=== PATIENT | female | born 1965 | race African-American/Black ===

== ENCOUNTER 2022-09-14 15:04 | Observation (INO) | payer OTHER ==
[2022-09-14 15:31] LABS: Absolute Lymphocytes (CBC) 1.9 K/uL (0.7-4.9); Hematocrit 33.1 % (36.0-45.0); MCV 85.8 fL (80-100); MPV 6.8 fL (7.6-11.3); RBC Red Blood Cell Count 3.85 M/uL (3.86-4.86)
[2022-09-14] MEDS ORDERED: FAMOTIDINE 20 MG/2 ML VIAL IV ONE (15:37)
[2022-09-14 16:00] LABS: Potassium 3.7 mmol/L (3.5-5.1); Troponin High Sensitivity 4.1 pg/mL (<58.9)
--- NOTE | 2022-09-14 16:13 | RAD REPORT ---
EXAM DESCRIPTION: Sarah Single View09/14/2022 3:49 pm CLINICAL HISTORY: CHEST PAIN COMPARISON: No comparisons TECHNIQUE: Portable AP view of the chest. FINDINGS: The lungs are clear.Mild central interstitial prominence could reflect mild congestion. No pneumothorax or effusion. The cardiomediastinal contours are unremarkable. IMPRESSION: No acute pulmonary process. Mild central interstitial prominence could reflect mild cent ral venous congestion.
[2022-09-14 16:23] LABS: SARS-CoV-2 Antigen Rapid Res Negative (Negative)
--- NOTE | 2022-09-14 17:25 | ER ---
Nurse's Notes [facility] Name: Sheryl Crawford Age: 57 yrs Sex: Female : 1965 Arrival Date: 09/14/2022 Time: 15:05 Bed 17 Private MD: Diagnosis: Chest pain, unspecified;Essential (primary) hypertension;Asymptomatic human immunodeficiency virus [HIV] infection status Presentation: 09/14 15:09 Chief complaint: EMS states: Pt c/o chest pain that radiates to R shoulder, worse w/ ph movement or deep breathing, states that the pain started this morning after eating a honey bun, denies N/V. Currently at [facility] for alcohol use, last drink was in July. Coronavirus screen: Vaccine status: Patient reports receiving the 2nd dose of the covid vaccine. Ebola Screen: No symptoms or risks identified at this time. Initial Sepsis Screen: Does the patient meet any 2 criteria? No. Patient's initial sepsis screen is negative. Does the patient have a suspected source of infection? No. Patient's initial sepsis screen is negative. Risk Assessment: Do you want to hurt yourself or someone else? Patient reports no desire to harm self or others. Onset of symptoms was September 14, 2022. 15:09 Method Of Arrival: EMS: [facility] 15:09 Acuity: HODA 3 ph Triage Assessment: 15:17 General: Appears in no apparent distress. comfortable, well groomed, Behavior is calm, ph cooperative, appropriate for age. Pain: Complains of pain in anterior aspect of right upper chest and mid-sternal area Pain radiates to right scapular area. Neuro: Level of Consciousness is awake, alert, obeys commands, Oriented to person, place, time, situation. Cardiovascular: Reports chest pain, Denies nausea, vomiting. Respiratory: Airway is patent Respiratory effort is even, unlabored. GI: No signs and/or symptoms were reported involving the gastrointestinal system. Derm: Skin is healthy with good turgor, Skin is pink, warm \T\ dry. Musculoskeletal: Circulation, motion, and sensation intact. Range of motion: intact in all extremities. Historical: - Allergies: 15:13 No Known Allergies; ph - Home Meds: 15:13 sertraline 50 mg oral tab 1 tab once daily [Active]; hydroxyzine HCl 50 mg Oral tab ph every 6 hours, PRN for anxiety [Active]; hydrochlorothiazide 12.5 mg Oral cap 1 cap once daily [Active]; Biktarvy 50-200-25 mg oral tab 1 tab once daily for HIV infection [Active]; fluticasone propionate 50 mcg/actuation nasal spsn 1 spray 2 times per day [Active]; - PMHx: 15:13 Bipolar disorder; depression; Hypertensive disorder; HIV positive; ph - Immunization history:: Adult Immunizations unknown. - Social history:: Smoking status: unknown. - Family history:: not pertinent. Screenin:18 [facility] ED Fall Risk Assessment (Adult) History of falling in the last 3 months, ph including since admission No falls in past 3 months (0 pts) Confusion or Disorientation No (0 pts) Intoxicated or Sedated No (0 pts) Impaired Gait No (0 pts) Mobility Assist Device Used No (0 pt) Altered Elimination No (0 pt) Score/Fall Risk Level 0 - 2 = Low Risk Oriented to surroundings, Maintained a safe environment, Hourly rounding (assess needs \T\ fall precautionary measures) done. Abuse screen: Denies threats or abuse. Denies injuries from another. Nutritional screening: No deficits noted. Tuberculosis screening: No symptoms or risk factors identified. Assessment: 15:25 General: Appears comfortable, Behavior is calm, cooperative, appropriate for age. Pain: sg5 Complains of pain in right upper chest Pain currently is 6 out of 10 on a pain scale. Pain began 1 day ago. Pain: Pain does not radiate. Quality of pain is described as aching. Neuro: No deficits noted. Level of Consciousness is awake, alert, obeys commands, Oriented to person, place, time, situation, Appropriate for age. Cardiovascular: Reports chest pain, Heart tones S1 S2 present Capillary refill < 3 seconds Rhythm is regular. Respiratory: Airway is patent. GI: No deficits noted. No signs and/or symptoms were reported involving the gastrointestinal system. : No deficits noted. No signs and/or symptoms were reported regarding the genitourinary system. EENT: No deficits noted. No signs and/or symptoms were reported regarding the EENT system. Derm: No deficits noted. No signs and/or symptoms reported regarding the dermatologic system. Musculoskeletal: No deficits noted. No signs and/or symptoms reported regarding the musculoskeletal system. 16:03 Reassessment: Patient appears in no apparent distress at this time. Patient and/or ph family updated on plan of care and expected duration. Pain level reassessed. Patient is alert, oriented x 3, equal unlabored respirations, skin warm/dry/pink. 16:39 Reassessment: Patient appears in no apparent distress at this time. Patient and/or ph family updated on plan of care and expected duration. Pain level reassessed. Patient is alert, oriented x 3, equal unlabored respirations, skin warm/dry/pink. 17:30 Reassessment: Patient appears in no apparent distress at this time. Patient and/or ph family updated on plan of care and expected duration. Pain level reassessed. Patient is alert, oriented x 3, equal unlabored respirations, skin warm/dry/pink. 18:30 Reassessment: Patient appears in no apparent distress at this time. Patient and/or ph family updated on plan of care and expected duration. Pain level reassessed. Patient is alert, oriented x 3, equal unlabored respirations, skin warm/dry/pink. 19:20 Reassessment: Patient appears in no apparent distress at this time. Patient and/or ph family updated on plan of care and expected duration. Pain level reassessed. Patient is alert, oriented x 3, equal unlabored respirations, skin warm/dry/pink. 21:00 Reassessment: Patient appears in no apparent distress at this time. Patient and/or aa9 family updated on plan of care and expected duration. Pain level reassessed. Patient is alert, oriented x 3, equal unlabored respirations, skin warm/dry/pink. Patient denies pain at this time. 22:00 Reassessment: Patient appears in no apparent distress at this time. Patient and/or aa9 family updated on plan of care and expected duration. Pain level reassessed. Patient is alert, oriented x 3, equal unlabored respirations, skin warm/dry/pink. Patient denies pain at this time. 09/15 00:16 Reassessment: Patient appears in no apparent distress at this time. Patient and/or aa9 family updated on plan of care and expected duration. Pain level reassessed. Patient is alert, oriented x 3, equal unlabored respirations, skin warm/dry/pink. 00:19 Reassessment: report provided to BRITTANY Snell. aa9 Vital Signs: 09/14 15:09 BP 152 / 100; Pulse 77; Resp 20; Temp 97.8; Pulse Ox 100% on R/A; Weight 62.14 kg; ph Height 5 ft. 7 in. (170.18 cm); 15:29 BP 142 / 99; Pulse 70; Resp 16; Temp 97.9; Pulse Ox 100% on R/A; Pain 6/10; sg5 16:03 BP 142 / 99; Pulse 65; Resp 18; Pulse Ox 98% on R/A; ph 16:39 BP 144 / 89; Pulse 67; Resp 18; Pulse Ox 98% on R/A; ph 17:30 BP 149 / 89; Pulse 68; Resp 18; Pulse Ox 98% on R/A; ph 20:30 BP 147 / 97; Pulse 71; Resp 18 S; Pulse Ox 98% on R/A; aa9 15:09 Body Mass Index 21.46 (62.14 kg, 170.18 cm) ph ED Course: 15:05 Patient arrived in ED. ld1 15:08 Francisco Javier Dyer MD is Attending Physician. johan 15:09 Lilian Roberts RN is Primary Nurse. ph 15:13 Triage completed. ph 15:18 Arm band placed on Patient placed in an exam room, on a stretcher. ph 15:18 Patient has correct armband on for positive identification. Placed in gown. Bed in low ph position. Call light in reach. Side rails up X2. Client placed on continuous cardiac and pulse oximetry monitoring. NIBP monitoring applied. Door closed. Noise minimized. Warm blanket given. Pillow given. 15:19 Maintain EMS IV. Dressing intact. Good blood return noted. Site clean \T\ dry. Gauge \T\ ph site: 20 RAC. Patient maintains SpO2 saturation greater than 95% on room air. 17:23 Shady Taveras is Hospitalizing Provider. johan 21:49 UDS Sent. aa9 09/15 00:10 No provider procedures requiring assistance completed. Patient admitted, IV remains in aa9 place. 00:19 Test Urine - POC Sent. aa9 Administered Medications: 09/14 15:23 Not Given (324 given by EMS): Aspirin 81 mg PO once ph 16:03 Drug: Pepcid (famotidine) 20 mg Route: IVP; Site: right antecubital; ph 17:07 Follow up: Response: No adverse reaction ph 19:03 Drug: Lovenox (enoxaparin) 60 mg Route: Sub-Q; Site: right lower abdomen; ph 19:21 Follow up: Response: No adverse reaction ph 19:04 Drug: NS 0.9% 500 ml Route: IV; Rate: bolus; Site: right antecubital; ph 09/15 00:19 Follow up: Response: No adverse reaction; IV Status: Completed infusion; IV Intake: aa9 500ml 09/14 19:04 Drug: NS 0.9% 1000 ml Route: IV; Rate: 125 ml/hr; Site: right antecubital; ph 19:21 Follow up: IV Status: Infusion continued upon admission ph 09/15 00:20 Follow up: Response: No adverse reaction; IV Status: Infusion continued upon admission; aa9 IV Intake: 900ml Medication: 09/14 15:18 VIS not applicable for this client. ph Intake: 09/15 00:19 IV: 500ml; Total: 500ml. aa9 00:20 IV: 900ml; Total: 1400ml. aa9 Outcome: 09/14 17:24 Decision to Hospitalize by Provider. [facility] 09/15 00:11 Admitted to Med/surg accompanied by tech, room 220, with chart. aa9 Condition: stable Instructed on the need for admit. 00:31 Patient left the ED. aa9 Signatures: Francisco Javier Dyer MD MD cha Hall, Patricia, RN RN ph Julieth Allen RN RN ld1 Sowmya De Oliveira RN RN aa9 Mona Peña RN RN sg5
--- NOTE | 2022-09-14 17:25 | EDPHYS ---
Physician Documentation [facility] Name: Sheryl Crawford Age: 57 yrs Sex: Female : 1965 Arrival Date: 09/14/2022 Time: 15:05 Bed 17 Private MD: ED Physician Francisco Javier Dyer HPI: 09/14 17:18 This 57 yrs old Black Female presents to ER via EMS with complaints of Chest Pain. johan 17:18 The patient or guardian reports chest pain that is located primarily in the anterior johan chest wall, bilaterally. Onset: just prior to arrival. The pain radiates to back. Associated signs and symptoms: Pertinent positives: dizziness, lightheadedness, shortness of breath. The chest pain is described as a heaviness, a pressure. Duration: The patient or guardian reports multiple episodes, with no pattern. Modifying factors: The symptoms are alleviated by nothing. the symptoms are aggravated by nothing. The patient has not experienced similar symptoms in the past. Historical: - Allergies: 15:13 No Known Allergies; ph - Home Meds: 15:13 sertraline 50 mg oral tab 1 tab once daily [Active]; hydroxyzine HCl 50 mg Oral tab ph every 6 hours, PRN for anxiety [Active]; hydrochlorothiazide 12.5 mg Oral cap 1 cap once daily [Active]; Biktarvy 50-200-25 mg oral tab 1 tab once daily for HIV infection [Active]; fluticasone propionate 50 mcg/actuation nasal spsn 1 spray 2 times per day [Active]; - PMHx: 15:13 Bipolar disorder; depression; Hypertensive disorder; HIV positive; ph - Immunization history:: Adult Immunizations unknown. - Social history:: Smoking status: unknown. - Family history:: not pertinent. ROS: 17:18 Constitutional: Negative for fever, chills, and weight loss, Eyes: Negative for injury, johan pain, redness, and discharge, ENT: Negative for injury, pain, and discharge, Neck: Negative for injury, pain, and swelling, Respiratory: Negative for shortness of breath, cough, wheezing, and pleuritic chest pain, Abdomen/GI: Negative for abdominal pain, nausea, vomiting, diarrhea, and constipation, Back: Negative for injury and pain, : Negative for injury, bleeding, discharge, and swelling, MS/Extremity: Negative for injury and deformity, Skin: Negative for injury, rash, and discoloration, Neuro: Negative for headache, weakness, numbness, tingling, and seizure, Psych: Negative for depression, anxiety, suicide ideation, homicidal ideation, and hallucinations, Allergy/Immunology: Negative for hives, rash, and allergies, Endocrine: Negative for neck swelling, polydipsia, polyuria, polyphagia, and marked weight changes, Hematologic/Lymphatic: Negative for swollen nodes, abnormal bleeding, and unusual bruising. 17:18 Cardiovascular: Positive for chest pain, of the chest. Exam: 17:18 Constitutional: This is a well developed, well nourished patient who is awake, alert, johan and in no acute distress. Head/Face: Normocephalic, atraumatic. Eyes: Pupils equal round and reactive to light, extra-ocular motions intact. Lids and lashes normal. Conjunctiva and sclera are non-icteric and not injected. Cornea within normal limits. Periorbital areas with no swelling, redness, or edema. ENT: Nares patent. No nasal discharge, no septal abnormalities noted. Tympanic membranes are normal and external auditory canals are clear. Oropharynx with no redness, swelling, or masses, exudates, or evidence of obstruction, uvula midline. Mucous membranes moist. Neck: Trachea midline, no thyromegaly or masses palpated, and no cervical lymphadenopathy. Supple, full range of motion without nuchal rigidity, or vertebral point tenderness. No Meningismus. Chest/axilla: Normal chest wall appearance and motion. Nontender with no deformity. No lesions are appreciated. Cardiovascular: Regular rate and rhythm with a normal S1 and S2. No gallops, murmurs, or rubs. Normal PMI, no JVD. No pulse deficits. Respiratory: Lungs have equal breath sounds bilaterally, clear to auscultation and percussion. No rales, rhonchi or wheezes noted. No increased work of breathing, no retractions or nasal flaring. Abdomen/GI: Soft, non-tender, with normal bowel sounds. No distension or tympany. No guarding or rebound. No evidence of tenderness throughout. Back: No spinal tenderness. No costovertebral tenderness. Full range of motion. Skin: Warm, dry with normal turgor. Normal color with no rashes, no lesions, and no evidence of cellulitis. MS/ Extremity: Pulses equal, no cyanosis. Neurovascular intact. Full, normal range of motion. Neuro: Awake and alert, GCS 15, oriented to person, place, time, and situation. Cranial nerves II-XII grossly intact. Motor strength 5/5 in all extremities. Sensory grossly intact. Cerebellar exam normal. Normal gait. Psych: Awake, alert, with orientation to person, place and time. Behavior, mood, and affect are within normal limits. 17:18 ECG was reviewed by the Attending Physician. Vital Signs: 15:09 BP 152 / 100; Pulse 77; Resp 20; Temp 97.8; Pulse Ox 100% on R/A; Weight 62.14 kg; ph Height 5 ft. 7 in. (170.18 cm); 15:29 BP 142 / 99; Pulse 70; Resp 16; Temp 97.9; Pulse Ox 100% on R/A; Pain 6/10; sg5 16:03 BP 142 / 99; Pulse 65; Resp 18; Pulse Ox 98% on R/A; ph 16:39 BP 144 / 89; Pulse 67; Resp 18; Pulse Ox 98% on R/A; ph 17:30 BP 149 / 89; Pulse 68; Resp 18; Pulse Ox 98% on R/A; ph 20:30 BP 147 / 97; Pulse 71; Resp 18 S; Pulse Ox 98% on R/A; aa9 15:09 Body Mass Index 21.46 (62.14 kg, 170.18 cm) ph MDM: 15:08 Patient medically screened. johan 17:20 Differential diagnosis: abnormal EKG, acute myocardial infarction, acute pericarditis, johan anxiety, costochondritis, esophagitis, gastritis, herpes zoster, pancreatitis, peptic ulcer disease, pleurisy, pneumonia, pneumothorax, pulmonary embolus, stable angina, thoracic aortic disection, unstable angina. HEART Score: History: Slightly Suspicious (0), ECG: Normal (0), Age: > 45 and < 65 years (1), Risk Factors: > or = 3 Risk factors for atherosclerotic disease (2), [Hypertension] [Active Smoker] [+ Family HX] Troponin: < or = 1 x Normal Limit (0). The patient was given aspirin in the Emergency Department. LUZ Risk Score: 1 - Three or more CAD risk factors, TOTAL SCORE = 1. Data reviewed: vital signs, nurses notes, lab test result(s), EKG, radiologic studies, CT scan, plain films. Consideration of Admission/Observation Patient was admitted/placed on observation. I considered the following discharge prescriptions or medication management in the emergency department Medications were administered in the Emergency Department. See MAR. Test considered but Not performed: Ultrasound no echo. Care significantly affected by the following Social Determinants of Health: Poor access to transportation, Inadequate housing, Misuse of alcohol and/or drugs, Problems related to primary support group, Unemployment, Problems related to employment. 09/14 15:05 Order name: Basic Metabolic Panel [facility] 09/14 15:05 Order name: CBC with Diff [facility] 09/14 15:05 Order name: Troponin HS [facility] 09/14 15:11 Order name: Lipase [facility] 09/14 15:11 Order name: SARS RAPID [facility] 09/14 15:34 Order name: CBC with Automated Diff; Complete Time: 17:16 [facility] 09/14 15:44 Order name: Lipase; Complete Time: 17:16 [facility] 09/14 16:00 Order name: Basic Metabolic Panel; Complete Time: 17:16 [facility] 09/14 16:00 Order name: Troponin High Sensitivity; Complete Time: 17:16 [facility] 09/14 16:23 Order name: SARS-COV-2 Antigen Rapid; Complete Time: 17:16 [facility] 09/14 17:18 Order name: UDS [facility] 09/14 22:01 Order name: Urine Dipstick-Ancillary [facility] 09/14 22:08 Order name: Test Urine - POC 09/14 22:24 Order name: Urine Drug Screen [facility] 09/14 15:05 Order name: XRAY Chest (1 view) [facility] 09/14 15:05 Order name: EKG; Complete Time: 15:06 [facility] 09/14 15:05 Order name: Cardiac monitoring; Complete Time: 15:19 [facility] 09/14 15:05 Order name: EKG - Nurse/Tech; Complete Time: 15:19 [facility] 09/14 15:05 Order name: IV Saline Lock; Complete Time: 15:19 [facility] 09/14 16:14 Order name: RAD; Complete Time: 17:16 [facility] 09/14 17:17 Order name: CT Aorta for Dissection [facility] 09/14 17:17 Order name: US Abdomen Limited [facility] 09/14 17:54 Order name: US; Complete Time: 18:12 [facility] 09/14 18:11 Order name: CT; Complete Time: 18:12 [facility] 09/14 22:37 Order name: Urine --Ancillary [facility] 09/14 15:05 Order name: Labs collected and sent; Complete Time: 15:19 [facility] 09/14 15:05 Order name: O2 Per Protocol; Complete Time: 15:19 [facility] 09/14 15:05 Order name: O2 Sat Monitoring; Complete Time: 15: [facility] 09/14 15:11 Order name: Urine Dipstick-Ancillary (obtain specimen); Complete Time: 21:49 johan EC:18 Rate is 62 beats/min. Rhythm is regular. QRS [place] is Normal. [place] interval is normal. QRS johan interval is normal. QT interval is normal. No Q waves. T waves are Normal. No ST changes noted. Clinical impression: NSR w/ Non-specific ST/T Changes and No evidence of ischemia. Interpreted by me. Reviewed by me. Administered Medications: 15: Not Given (324 given by EMS): Aspirin 81 mg PO once ph 16:03 Drug: Pepcid (famotidine) 20 mg Route: IVP; Site: right antecubital; ph 17:07 Follow up: Response: No adverse reaction ph 19:03 Drug: Lovenox (enoxaparin) 60 mg Route: Sub-Q; Site: right lower abdomen; ph 19:21 Follow up: Response: No adverse reaction ph 19:04 Drug: NS 0.9% 500 ml Route: IV; Rate: bolus; Site: right antecubital; ph 09/15 00:19 Follow up: Response: No adverse reaction; IV Status: Completed infusion; IV Intake: aa9 500ml 09/14 19:04 Drug: NS 0.9% 1000 ml Route: IV; Rate: 125 ml/hr; Site: right antecubital; ph 19:21 Follow up: IV Status: Infusion continued upon admission ph 09/15 00:20 Follow up: Response: No adverse reaction; IV Status: Infusion continued upon admission; aa9 IV Intake: 900ml Disposition Summary: 09/14/22 17:24 Hospitalization Ordered Hospitalization Status: Observation johan Provider: Shady Taveras cha Condition: Stable johan Problem: new johan Symptoms: have improved johan Bed/Room Type: Standard johan Location: Telemetry/MedSurg (observation)(09/14/22 23:42) cg Room Assignment: 220(09/14/22 23:42) cg Diagnosis - Chest pain, unspecified johan - Essential (primary) hypertension johan - Asymptomatic human immunodeficiency virus [HIV] infection status johan Forms: - Medication Reconciliation Form johan - SBAR form johan Signatures: Dispatcher [employer] EDFrancisco Javier Berman MD MD cha Hall, Patricia, RN RN No Eagle RN RN cg Julieth Allen RN RN ld1 Barbara Lewis PA-C PAGayle sb4 Sowmya De Oliveira RN aa9 Corrections: (The following items were deleted from the chart) 09/14 21:46 17:24 Telemetry/MedSurg (observation) johan cg 21:46 17:24 johan cg 23:42 21:46 [facility] ER HOLD cg cg 23:42 21:46 ERHOLD- cg cg
--- NOTE | 2022-09-14 17:53 | RAD REPORT ---
EXAM DESCRIPTION: US - Abdomen Exam Limited - 09/14/2022 5:34 pm CLINICAL HISTORY: ABD PAIN COMPARISON: No comparisons FINDINGS: The gallbladder is contracted, limiting its evaluation. No pericholecystic fluid or gallbl adder wall thickening. The common bile duct is normal measuring 2 millimeter. The visualized aspects of the liver demonstrates no findings of intrahepatic biliary dilatation. IMPRESSION: Contracted gallbladder, limiting evaluation. The patient can return the next day for rev aluation as clinically indicated, after at least 6 hours of fasting. No evidence of intra or extrahepatic biliary ductal dilation.
--- NOTE | 2022-09-14 18:11 | RAD REPORT ---
EXAM DESCRIPTION: CT - Angio Aorta For Dissection - 09/14/2022 5:48 pm CLINICAL HISTORY: Abdominal pain. Chest pain radiating to right shoulder. History of hypertension, and HIV. COMPARISON: None. TECHNIQUE: Dynamically enhanced 3 mm thick images of the chest, abdomen, and upper pelvis were obtai mao during administration of approximately 95mL Isovue 370 IV contrast. Sagittal and coronal reconstr uction images, as well as maximal intensity projection reconstructions, were generated and reviewed. Exam utilizes a protocol to evaluate entire course of the aorta. All CT scans are performed using dose optimization technique as appropriate and may include automated exposure control or mA/KV adjustment according to patient size. FINDINGS: Aorta is normal in diameter with no dissection or other acute aortic findings. Reconstruct ion images show no significant findings. Mild scattered atherosclerotic calcifications along the abdo bob aorta and proximal renal arteries. Pulmonary arteries are normal in caliber, without evidence of proximal filling defects allowing for s uboptimal contrast timing. No mass or infiltrate in the lung parenchyma. No pleural thickening, pleural effusion or pneumothorax . No abnormal mediastinal or hilar mass or lymphadenopathy seen. No chest wall mass or abnormal axillar y lymphadenopathy. Celiac, SMA, KARLO, and renal arteries show no suspicious findings. Solid abdominal viscera and bowel s how no significant findings. No mass or abnormal lymphadenopathy. IMPRESSION: Negative CT angiogram of the aorta. No other significant findings on chest, abdomen, and upper pelvis examination.
--- NOTE | 2022-09-14 18:55 | P.HP ---
Certification for Inpatient Patient admitted to: Observation With expected LOS: <2 Midnights Patient will require the following post-hospital care: None Practitioner: I am a practitioner with admitting privileges, knowledge of patient current condition, hospital course, and medical plan of care. Services: Services provided to patient in accordance with Admission requirements found in Title 42 Section 412.3 of the Code of Federal Regulations Patient History Date of Service: 09/14/22 Reason for admission: Chest Pain History of Present Illness: Patient is a 57 year old female with past medical history of hypertension, HIV, and bipolar disorder who presented to the emergency department with complaints of chest pain. She states the pain began this morning after eating her breakfast. Troponin is negative. UDS pending. EKG with NSR. Other notable labs- hgb 11.2, hct 33.1, lipase 427. Chest xray and CT dissection negative. Vital signs have been stable. She was given aspirin, lovenox, and IV fluids. ED provider wishes to admit patient for observation, ACS rule out. Home medications list reviewed: Yes - Past Medical/Surgical History Diabetic: No -: Hypertension -: Bipolar Disorder -: HIV Past Surgical History: Patient denies surgical history Psychosocial/ Personal History: Patient lives at [facility]. - Family History Family History: Reviewed- Non-Contributory - Social History Smoking Status: Current some day smoker Alcohol use: No CD- Drugs: No Caffeine use: Yes Place of Residence: Home Review of Systems Cardiovascular: Chest Pain Physical Examination - Vital Signs Temperature: 97.9 F Blood Pressure: 144/89 Pulse: 67 Respirations: 18 Pulse Ox (%): 98 - Physical Exam General: Alert, In no apparent distress HEENT: Atraumatic, EOMI, Sclerae nonicteric Neck: Supple, 2+ carotid pulse no bruit Respiratory: Clear to auscultation bilaterally, Normal air movement Cardiovascular: Regular rate/rhythm, Normal S1 S2 Gastrointestinal: Normal bowel sounds, No tenderness Musculoskeletal: No tenderness Integumentary: No rashes Neurological: Normal speech, Normal affect - Studies Laboratory Data (last 24 hrs) 09/14/22 15:21: Lipase 427 H 09/14/22 15:21: WBC 4.20 L, Hgb 11.2 L, Hct 33.1 L, Plt Count 201 09/14/22 15:21: Sodium 138, Potassium 3.7, BUN 14, Creatinine 0.95, Glucose 97 Assessment and Plan - Problems (Diagnosis) (1) Chest pain Current Visit: Yes Status: Acute Qualifiers: Chest pain type: unspecified Qualified Code(s): R07.9 - Chest pain, unspecified (2) Hypertension Current Visit: Yes Status: Chronic Qualifiers: Hypertension type: primary hypertension Qualified Code(s): I10 - Essential (primary) hypertension (3) Bipolar disorder Current Visit: Yes Status: Chronic Qualifiers: Active/Remission status: remission status unspecified Qualified Code(s): F31.9 - Bipolar disorder, unspecified (4) HIV (human immunodeficiency virus infection) Current Visit: Yes Status: Chronic Qualifiers: HIV symptom status: unspecified Qualified Code(s): B20 - Human immunodeficiency virus [HIV] disease - Plan Patient is admitted for observation, for ACS rule out. Initial troponin negative. Trend q6hx2. Monitor on telemetry. Chest pain seems more GI related. She had some relief with Pepcid. Cardiology consult. Echo ordered. Check lipid panel and TSH. Lipase slightly elevated. Patient is complaining of substernal chest pain that could be related. Continue IV fluids and recheck lipase in the morning. Patient is anemic with hgb 11. No prior labs to compare. Will check iron studies. Monitor and replete electrolytes per protocol. Reconcile and continue home medications. Lovenox for VTE prophylaxis. Full code. Discharge Plan: Home Plan to discharge in: 24 Hours - Advance Directives Does patient have a Living Will: No Does patient have a Durable POA for Healthcare: No - Code Status/Comfort Care Code Status Assessed: Yes Code Status: Full Code Physician Review: Patient Assessed, Agree with Above Assessment and Plan Critical Care: No Time Spent Managing Pts Care (In Minutes): 50
[2022-09-14] MEDS ORDERED: NA CHLORIDE 0.9% 500 ML ONE (18:56)
[2022-09-14] MEDS ORDERED: ENOXAPARIN 60 MG/0.6 ML SQ ONE (18:57)
[2022-09-14] MEDS ORDERED: NA CHLORIDE 0.9% 1,000 ML ONE (18:57)
[2022-09-14 22:00] LABS: Urine Blood Trace-intact (Negative); Urine Glucose Negative (Negative); Urine Protein Negative (Negative)
[2022-09-14 22:23] LABS: Barbiturates NEGATIVE (NEGATIVE); Benzodiazepines NEGATIVE (NEGATIVE); Cocaine NEGATIVE (NEGATIVE); METHAMPHETAM NEGATIVE (NEGATIVE); Methadone NEGATIVE (NEGATIVE); Opiates NEGATIVE (NEGATIVE); Phencyclidine NEGATIVE (NEGATIVE); THC Cannibis NEGATIVE (NEGATIVE)
[2022-09-15] MEDS ORDERED: ONDANSETRON 4 MG/2 ML VIAL IV PRN (00:02)
[2022-09-15] MEDS ORDERED: ACETAMINOPHEN 500 MG TAB PO PRN (00:02)
[2022-09-15] MEDS ORDERED: ATORVASTATIN 40 MG TAB PO SCH (00:02)
[2022-09-15] MEDS ORDERED: MAGNES/ALUMIN/SIMET 30ML UCUP PO PRN (00:02)
[2022-09-15 00:40] VITALS: BMI 21.4
[2022-09-15 01:02] VITALS: O2SAT 100
[2022-09-15] MEDS: NA CHLORIDE 0.9% 1,000 ML IV SCH ×2 (01:10→08:44)
[2022-09-15 08:09] LABS: Absolute Lymphocytes (CBC) 1.6 K/uL (0.7-4.9); Hematocrit 34.2 % (36.0-45.0); Lymphocytes % 59.8 % (15.3-44.8); MCV 86.6 fL (80-100); RBC Red Blood Cell Count 3.95 M/uL (3.86-4.86)
[2022-09-15 08:38] LABS: Ferritin 60.7 ng/mL (8-388); Magnesium 1.8 mg/dL (1.6-2.4); Phosphorus 3.3 mg/dL (2.5-4.9); Potassium 3.7 mmol/L (3.5-5.1)
[2022-09-15] MEDS ORDERED: ASPIRIN EC 81 MG TAB PO SCH (09:00)
[2022-09-15] MEDS ORDERED: ENOXAPARIN 40 MG/0.4 ML SQ SCH (09:00)
[2022-09-15 09:39] VITALS: BP 158/96; TEMP 98.1
--- NOTE | 2022-09-15 10:22 | P.DS ---
Admission Date: 09/14/22 Discharge Date: 09/15/22 Disposition: ROUTINE DISCHARGE Discharge Condition: FAIR Reason for Admission: Chest Pain - Problems (1) Chest pain Current Visit: Yes Status: Acute Qualifiers: Chest pain type: unspecified Qualified Code(s): R07.9 - Chest pain, unspecified (2) Bipolar disorder Current Visit: Yes Status: Chronic Qualifiers: Active/Remission status: remission status unspecified Qualified Code(s): F31.9 - Bipolar disorder, unspecified (3) HIV (human immunodeficiency virus infection) Current Visit: Yes Status: Chronic Qualifiers: HIV symptom status: unspecified Qualified Code(s): B20 - Human immunodeficiency virus [HIV] disease (4) Hypertension Current Visit: Yes Status: Chronic Qualifiers: Hypertension type: primary hypertension Qualified Code(s): I10 - Essential (primary) hypertension Brief History of Present Illness: Patient is a 57 year old female with past medical history of hypertension, HIV, and bipolar disorder who presented to the emergency department with complaints of chest pain. She states the pain began after eating breakfast. Troponin was negative. UDS negative. EKG showed NSR, no ischemic changes. Other notable labs- hgb 11.2, hct 33.1, lipase 427. Chest xray and CT dissection negative. Vital signs stable. She was given aspirin, lovenox, and IV fluids. Patient was hospitalized for ACS rule out. Hospital Course: Patient placed on observation on the medical floor. Troponin trended negative. Physical examination revealed mild epigastric tenderness. Her chest pain work was precipitated by by meal and suspect gastritis/GERD. ACS ruled out. Case discussed with Dr. Leal who recommend to follow-up with patient in the office for outpatient stress test. Her LDL is greater than 102. Patient is prescribed aspirin and Lipitor. Her home dose hydrochlorothiazide for hypertension continued on discharge. Vital Signs/Physical Exam: Temp Pulse Resp BP Pulse Ox 98.1 F 75 16 158/96 H 100 09/15/22 08:00 09/15/22 08:00 09/15/22 08:00 09/15/22 08:00 09/15/22 08:00 General: Alert, In no apparent distress, Oriented x3 HEENT: Mucous membr. moist/pink Neck: Supple, JVD not distended Respiratory: Clear to auscultation bilaterally, Crackles/rales Cardiovascular: Regular rate/rhythm, Normal S1 S2, No murmurs Gastrointestinal: Normal bowel sounds, Soft and benign, Non-distended, No tenderness Musculoskeletal: No swelling Integumentary: No rashes Neurological: Normal speech, Normal strength at 5/5 x4 extr Laboratory Data at Discharge: WBC 2.70 K/uL (4.3-10.9) L 09/15/22 07:54 Hgb 11.2 g/dL (12.0-15.0) L 09/15/22 07:54 Hct 34.2 % (36.0-45.0) L 09/15/22 07:54 Plt Count 174 K/uL (152-406) 09/15/22 07:54 Sodium 140 mmol/L (136-145) 09/15/22 07:54 Potassium 3.7 mmol/L (3.5-5.1) 09/15/22 07:54 BUN 11 mg/dL (7-18) 09/15/22 07:54 Creatinine 1.03 mg/dL (0.55-1.02) H 09/15/22 07:54 Glucose 102 mg/dL (74-106) 09/15/22 07:54 Phosphorus 3.3 mg/dL (2.5-4.9) 09/15/22 07:54 Magnesium 1.8 mg/dL (1.6-2.4) 09/15/22 07:54 Triglycerides 123 mg/dL (<150) 09/15/22 07:54 Cholesterol 182 mg/dL (<200) 09/15/22 07:54 HDL Cholesterol 55 mg/dL (40-60) 09/15/22 07:54 Cholesterol/HDL Ratio 3.31 09/15/22 07:54 Lipase 313 U/L (73-393) 09/15/22 07:54 Home Medications: Aspirin [Aspirin EC 81 MG] 81 mg PO DAILY #30 tab 09/15/22 Atorvastatin Calcium [Lipitor] 40 mg PO BEDTIME #30 tab 09/15/22 Bictegrav/Emtricit/Tenofov Ala [Biktarvy 50-200-25 mg Tablet] 1 tab PO DAILY 09/15/22 Fluticasone Propionate [Flovent Diskus] 1 spray NS BID 09/15/22 Sertraline [Zoloft*] 50 mg PO DAILY 09/15/22 hydrOXYzine HCL [Atarax] 1 tab PO Q6HP PRN 09/15/22 hydroCHLOROthiazide [Hydrochlorothiazide*] 1 cap PO DAILY 09/15/22 New Medications: Aspirin [Aspirin EC 81 MG] 81 mg PO DAILY #30 tab Atorvastatin Calcium [Lipitor] 40 mg PO BEDTIME #30 tab Diet: AHA Activity: Ad luis alberto Followup: [facility] [Primary Care Provider] - Gadiel Leal MD [ACTIVE - CAN ADMIT] - 1-2 Weeks (For arrangement for outpatient stress test.)
--- NOTE | 2022-09-16 08:49 | ECHO ---
HEIGHT: 5 ft 8 in WEIGHT: 141 lb 1 oz DATE OF STUDY: 09/15/[address]: Barbara Lewis 2-DIMENSIONAL: YES M.MODE: YES DOPPLER: YES COLOR FLOW: YES TDS: PORTABLE: YES DEFINITY: BUBBLE STUDY: DIAGNOSIS: CHEST PAIN CARDIAC HISTORY: CATHERIZATION: SURGERY: PROSTHETIC VALVE: PACEMAKER: MEASUREMENTS (cm) DIASTOLIC (NORMALS) SYSTOLIC (NORMALS) IVSd 0.9 (0.6-1.2) LA Diam 2.9 (1.9-4.0) LVEF 65% LVIDd 4.1 (3.5-5.7) LVIDs 2.3 (2.0-3.5) %FS 45% LVPWd 1.0 (0.6-1.2) Ao Diam 2.4 (2.0-3.7) 2 DIMENSIONAL ASSESSMENT: RIGHT ATRIUM: NORMAL LEFT ATRIUM: NORMAL RIGHT VENTRICLE: NORMAL LEFT VENTRICLE: NORMAL TRICUSPID VALVE: MILD TRICUSPID REGURGITATION MITRAL VALVE: MILD MITRAL REGURGITATION PULMONIC VALVE: NORMAL AORTIC VALVE: NORMAL PERICARDIAL EFFUSION: NONE AORTIC ROOT: NORMAL LEFT VENTRICULAR WALL MOTION: NORMAL DOPPLER/COLOR FLOW: SEE BELOW COMMENTS: 1. NORMAL LEFT VENTRICULAR EJECTION FRACTION 60-65% 2. NORMAL WALL MOTION 3. NORMAL DIASTOLIC FUNCTION 4. MILD MITRAL REGURGITATION 5. MILD TRICUSPID REGURGITATION TECHNOLOGIST: RASHAD AVILA
--- NOTE | 2022-09-16 13:24 | EKG ---
Test Date: 2022-09-14 Test Time: 15:19:01 Cna Hha: YANICK MEASUREMENT RESULTS: Intervals: Rate: 62 PA: 164 QRSD: 84 QT: 432 QTc: 438 [place]: P: 66 PA: 164 QRS: 72 T: 60 INTERPRETIVE STATEMENTS: Normal sinus rhythm Normal ECG No previous ECG available for comparison Electronically Signed On 09-16-22 13:19:17 SIGNAL MAINTAINER HELPER by Gadiel Leal
== END 2022-09-15 10:44 | disposition home or self-care (01) ==
LOC: ER 15:04 → ERHOLD 18:50 → 2ND 09-15
PROVIDERS: ADMIT Internal Medicine; ATTEND Internal Medicine
DX: R07.9 Chest pain, unspecified (principal); I10 Essential (primary) hypertension; B20 Human immunodeficiency virus [HIV] disease; F31.9 Bipolar disorder, unspecified; Z20.822 Contact with and (suspected) exposure to COVID-19
CPT/HCPCS: 93005; 93306; 85025 ×2; 80048 ×2; 36415; 83735; 81025; 84100; 80061; 84443; 81003; 84484 ×3; 82728; 83690 ×2; 83540; 80307; 84466; 71275; 74175; 71045; 76705; 87811; Q9967; J1650 ×2; J7040; J7030 ×3; 96361; 96372; 96374; 99285; G0378